=== PATIENT | female | born 1955 | race Caucasian/White ===

== ENCOUNTER → 2018-03-18 | Outpatient (CLI) | payer BC | LOC: MC.RAD 12:54 | DX: Z12.31 Encounter for screening mammogram for malignant neoplasm of breast (principal); N64.89 Other specified disorders of breast ==

== ENCOUNTER → 2018-03-29 | Outpatient (CLI) | payer BC | LOC: MC.RAD 07:24 | DX: N64.89 Other specified disorders of breast (principal) | CPT/HCPCS: G0279 ==

== ENCOUNTER 2019-03-28 06:25 | Day surgery (SDC) | payer BC ==
[~2019-03-28] VITALS: Ht 160 cm; Wt 71.8 kg
[2019-03-28] VITALS (7 sets, daily range): BP systolic 107–136; BP diastolic 44–71; PULSE 63–80; TEMP 97.7
[2019-03-28] MEDS ORDERED: LIPITOR20 MG PO (06:55)
[2019-03-28] MEDS ORDERED: DUPIXENT300 MG/2 M SQ (06:55)
[2019-03-28] MEDS ORDERED: ELOCON0.11 TOP (06:57)
--- NOTE | 2019-03-28 08:25 | NUR ---
Pt to [facility] via cart from [place]. Pt awake and alert. Pt ambulates to recliner with stand by assistance. Brother in room. Water given per pt request. Will continue to monitor. Call light within reach.
--- NOTE | 2019-03-28 08:40 | NUR ---
Pt continues to rest. Denies needs at this time. Call light within reach.
--- NOTE | 2019-03-28 08:55 | NUR ---
Zofran 4mg IVSP given for nausea and vomiting at 0850. Warm blankets given. Will continue to monitor.
--- NOTE | 2019-03-28 09:10 | NUR ---
Pt up to restroom. Voids without difficulties. Pt back to room. Will continue to monitor. Call light within reach.
--- NOTE | 2019-03-28 09:25 | NUR ---
Pt still feeling nauseated. notified and second dose of Zofran ordered. Zofran 4mg IVSP given per orders. Will continue to monitor. Call light within reach.
--- NOTE | 2019-03-28 09:55 | NUR ---
Pt reports "I am feeling much better." Discharge instructions reviewed. Pt voices understanding. IV site discontinued with all parts intact. Pt up to dress. Call light within reach.
--- NOTE | 2019-03-28 10:05 | NUR ---
Pt escorted to private car via wheel chair. Pt accompanied home by her brother.
== END 2019-03-28 10:05 | disposition home or self-care (01) ==
LOC: SDCO 06:25
DX: Z12.11 Encounter for screening for malignant neoplasm of colon (principal); D12.0 Benign neoplasm of cecum; K62.89 Other specified diseases of anus and rectum; Z88.1 Allergy status to other antibiotic agents; Z88.3 Allergy status to other anti-infective agents
CPT/HCPCS: J2250; J2405; J3010; J7030

== ENCOUNTER → 2022-01-09 | Outpatient (CLI) | payer BC ==
[~2022-01-09] MED LIST: DUPIXENT300 MG/2 M SQ; ELOCON0.11 TOP; LIPITOR20 MG PO
== END ==
LOC: MC.RAD 08:11
DX: N63.10 Unspecified lump in the right breast, unspecified quadrant (principal)

== ENCOUNTER → 2023-01-05 | Outpatient (CLI) | payer BC | LOC: CANSCHCLI → MC.RAD 09:23 | DX: Z12.31 Encounter for screening mammogram for malignant neoplasm of breast (principal) ==